=== PATIENT | female | born 1960 | race Caucasian/White ===

== ENCOUNTER 2018-07-29 05:31 | Day surgery (SDC) | payer BC, OTHER ==
[2018-07-27 12:52] LABS: HEMATOCRIT 38.9 % (36.0-47.0); HEMOGLOBIN 13.8 g/dL (12.0-15.5); MEAN CORPUSCULAR HEMOGLOBIN 34.1 pg (27.0-33.4); MEAN CORPUSCULAR HGB CONC 35.5 g/dL (32.0-36.0); MEAN CORPUSCULAR VOLUME 96 fl (80-97); PLATELET COUNT 333 10^3/uL (150-450); RED BLOOD COUNT 4.05 10^6/uL (3.72-5.28); RED CELL DISTRIBUTION WIDTH 12.4 % (11.5-14.0); WHITE BLOOD COUNT 6.6 10^3/uL (4.0-10.5)
[2018-07-27 13:01] LABS: APPEARANCE,URINE CLEAR; BILIRUBIN,URINE NEGATIVE (NEGATIVE); COLOR,URINE YELLOW; GLUCOSE, URINE NEGATIVE (NEGATIVE); KETONES,URINE NEGATIVE (NEGATIVE); LEUKOCYTE ESTERASE,URINE NEGATIVE (NEGATIVE); NITRITE,URINE NEGATIVE (NEGATIVE); PROTEIN,URINE NEGATIVE (NEGATIVE); URINE SPECIFIC GRAVITY 1.009; UROBILINOGEN,URINE NEGATIVE mg/dL (<2.0)
[~2018-07-29 05:31] MED LIST: LACTATED RINGERS 1000 ML IV PRN; LIDOCAINE 0.5% INJ-PF (5 MG/ML) 50 ML SDV SUBCUT PRN
[2018-07-29] MEDS ORDERED: LIDOCAINE 1%/EPINEPHRINE INJ 20 ML VIAL ONE (06:39)
[2018-07-29] MEDS ORDERED: MIDAZOLAM 2 MG/2 ML INJ ONE ×2 (06:49→06:52)
[2018-07-29] MEDS ORDERED: FENTANYL CITRATE INJ/PF 100 MCG/2 ML AMPUL ONE (06:49)
[2018-07-29] MEDS ORDERED: PROPOFOL INJ 200 MG/20 ML VIAL IV ONE (06:50)
[2018-07-29] MEDS ORDERED: CEFAZOLIN 1 GM/D5W RTU 1 GM/50 ML RTUPB IV ONE (07:13)
[2018-07-29] MEDS ORDERED: PROMETHAZINE HCL INJ 25 MG/1 ML VIAL IV PRN (07:54)
[2018-07-29] MEDS ORDERED: DIPHENHYDRAMINE HCL 50 MG/ML VIAL IV PRN (07:54)
[2018-07-29] MEDS ORDERED: FENTANYL CITRATE INJ/PF 100 MCG/2 ML AMPUL IV PRN ×3 (07:54)
[2018-07-29] MEDS ORDERED: RINGERS SOLUTION,LACTATED 1,000 ML IV PRN (08:27)
[2018-07-29] MEDS ORDERED: IBUPROFEN 800 MG TABLET PO PRN (08:28)
[2018-07-29] MEDS ORDERED: MORPHINE SULFATE 10 MG/ML INJ IM PRN (08:28)
[2018-07-29] MEDS ORDERED: OXYCODONE-ACETAMINOPHEN 5-325 MG TABLET PO PRN ×2 (08:29)
[2018-07-29] MEDS ORDERED: OXYCODONE-ACETAMINOPHEN 5-325 MG TABLET ONE (08:50)
[2018-07-29 11:21] VITALS: BP 133/67
[2018-07-29] MEDS ORDERED: LIDOCAINE 2% INJ-PF (20 MG/ML) 2 ML AMPUL ONE (14:06)
[2018-07-29] MEDS ORDERED: ONDANSETRON HCL INJ/PF 4 MG/2 ML SDV ONE (14:06)
[2018-07-29] MEDS ORDERED: DEXAMETHASONE SOD PHOSPHATE INJ 4 MG/1 ML VIAL ONE (14:06)
--- NOTE | 2018-07-29 21:29 | EKG REPORT ---
SEVERITY:- BORDERLINE ECG - SINUS RHYTHM BORDERLINE T ABNORMALITIES, ANT-LAT LEADS : Confirmed by: Liberty Garcia MD 29-Jul-2018 21:29:18
--- NOTE | 2018-09-08 23:42 | OPERATIVE REPORT E ---
Operative Report NAME: PREETI BENOIT : 1960 AGE: 58Y DATE OF SURGERY: 07/29/2018 ROOM: PREOPERATIVE DIAGNOSIS: Vaginal lesions. POSTOPERATIVE DIAGNOSIS: Vaginal lesions. SURGEON: KENNETH THORPE M.D. ANESTHESIA: Dr. Dick and Aline Peraza CRNA with *------* FINDINGS: Two enlarged cauliflower type lesions of the vaginal mucosa on the anterior aspect of the vagina just at the introitus. COMPLICATIONS: None. ESTIMATED BLOOD LOSS: 10 mL. SPECIMENS REMOVED: Both vaginal lesions. PROCEDURE: Excision of vaginal lesions. PROCEDURE IN DETAIL: The patient was taken to the operating room and prepared and draped in the normal sterile fashion in the dorsal lithotomy position. Under sterile conditions in-and-out cath was performed with approximately 50 mL of clear urine. The lesions were located and grasped with an Allis and each lesion was then undermined and injected with approximately 2.5 mL of lidocaine with epinephrine for anesthesia as well as fluid dissection. The smaller of the two, which was more anterior, was grasped again with the Allis and this was excised using an 11 blade in a circumferential fashion. The larger and more inferior lesion was then also grasped with the Allis and excised following the mucosa in a circumferential fashion. These lesions were then passed off to *------* for pathology. The defects were then closed with interrupted sutures of 4-0 Vicryl. The patient tolerated the procedure well. Sponge, lap and needle counts were correct x2. The patient was taken to recovery in stable condition. DICTATING PHYSICIAN: KENNETH THORPE M.D. [id number] PHY#: [id number] ID: [id number] JOB#: [id number] ACCT: [id number] cc:KENNETH THORPE M.D. >
== END 2018-07-29 10:40 | disposition home or self-care (01) ==
LOC: OROUT 05:31
PROVIDERS: ATTEND Obstetrics & Gynecology
DX: N84.2 Polyp of vagina (principal); N89.8 Other specified noninflammatory disorders of vagina; D39.9 Neoplasm of uncertain behavior of female genital organ, unspecified; I10 Essential (primary) hypertension; Z87.891 Personal history of nicotine dependence; Z79.899 Other long term (current) drug therapy; Z88.8 Allergy status to other drugs, medicaments and biological substances
CPT/HCPCS: 36415; 85027; 81001; 88305 ×2; 93005; 93010; 57135; J2250; J0690; J1100; J3010; J3490 ×2; J2405; J2704; 940

== ENCOUNTER → 2020-09-08 | Outpatient (CLI) | payer BC ==
[~2020-09-08] MED LIST changes: +COVID-19 VACCINE (PFIZER)/PF 30 MCG/0.3 ML VIAL IM ONE; +EPINEPHRINE INJ/PF 1 MG/1 ML AMPULE IM PRN; -LACTATED RINGERS 1000 ML IV PRN; -LIDOCAINE 0.5% INJ-PF (5 MG/ML) 50 ML SDV SUBCUT PRN
--- OUTSIDE RECORDS SUMMARY | 2020-09-11 10:34 | XMS REPORT ---
:1960 [facility] [address] [place] [address] Care Team Providers Name Role Phone Libia Attending Clinician Unavailable Allergies, Adverse Reactions, Alerts Allergy Name Allergy Status Severity Reaction(s) Onset Inactive Treat ing Comments Type Date Date Clinician CIPROFLOXACIN Drug Active U allergy 10-09 00:00: 00 Medications This patient has no known medications. Problems This patient has no known problems. Procedures Procedure Date / Time Performed Performing Clinician Alona e OFFICE/OUTPATIENT VISIT [facility] 2017-10-09 10:05:00 Results This patient has no known results. Assessments Condition Name Status Diagnosis Date Treating Clinici an Chronic sinusitis, unspecified Active Oth bacterial agents as the cause of Active diseases classd elswhr Allergic rhinitis, unspecified Active Body mass index (BMI) 26.0-26.9, adult Active Encounters Start End Encounter Admission Attending Care Care Encounter Date/Time Date/Time Type Type Clinicians Facility Department ID 2017-10-09 2017-10-09 Outpatient Georgie Reza [facility] Mateo evans [id number] 10:05:00 10:05:00 Children [id number] s [id number] and [id number] [facility] [place] Social History This patient has no known social history. Vital Signs This patient has no known vital signs.
== END ==
LOC: EMPHEALTH 17:15
PROVIDERS: ATTEND Internal Medicine
DX: Z23 Encounter for immunization (principal)
CPT/HCPCS: 91300